=== PATIENT | male | born 1950 | race Caucasian/White ===

== ENCOUNTER 2019-04-06 23:26 | Emergency (ER) | payer OTHER ==
[~2019-04-06] VITALS: Ht 180.3 cm; Wt 96.2 kg
[2019-04-06 23:26] VITALS: BP_SYST 137
[2019-04-07 01:38] VITALS: BP_SYST 134
== END 2019-04-07 01:38 | disposition home or self-care (01) ==
LOC: SED 23:26
DX: R04.0 Epistaxis (principal); I10 Essential (primary) hypertension; E78.5 Hyperlipidemia, unspecified; Z90.49 Acquired absence of other specified parts of digestive tract
CPT/HCPCS: 99281; 99284